=== PATIENT | male | born 1990 | race Caucasian/White ===

== ENCOUNTER → 2021-09-20 11:59 | Outpatient (CLI) | payer OTHER, SELFPAY ==
--- NOTE | ~2021-09-20 | XR_ITS ---
EXAMINATION: XR chest 2V DATE: 09/20/2021 12:15 INDICATION: Chest pain TECHNIQUE: PA and lateral views of the chest are obtained. COMPARISON: 03/13/2012 FINDINGS: The lungs are free of acute opacities. There is no pleural effusion or pneumothorax. The ca rdiomediastinal silhouette is normal. The visualized bones and soft tissues are unremarkable. IMPRESSION: 1. No acute cardiopulmonary abnormality. Reviewed, dictated and finalized at location A.
== END ==
LOC: EXPGRAD 12:05
PROVIDERS: PCP Family Medicine; Visit Provider Family Medicine
DX: R07.9 Chest pain, unspecified (principal)
CPT/HCPCS: 71046

== ENCOUNTER 2021-09-24 11:54 | Emergency (ER) | payer OTHER, SELFPAY ==
[2021-09-24] VITALS (14 sets, daily range): BP systolic 118–143; BP diastolic 78–99; PULSE 63–84; RESP 10–19; TEMP 36.4–36.7; O2SAT 99–100
--- NOTE | ~2021-09-24 | XR_ITS ---
EXAMINATION: XR chest 2V DATE: 09/24/2021 12:08 INDICATION: Chest pain. Shortness of breath. TECHNIQUE: Frontal and lateral views of the chest were obtained. COMPARISON: Chest 2 views 09/20/2021 FINDINGS: The chest demonstrates clear lungs without pneumonia, pleural effusion, or pneumothorax. Th e heart size is normal. IMPRESSION: 1. No acute cardiopulmonary disease. Reviewed, dictated and finalized at location A.
--- NOTE | 2021-09-24 11:55 | ECG_ITS ---
Measurements Intervals [place] Rate: 79 P: 37 AK: 147 QRS: 69 QRSD: 109 T: 56 QT: 352 QTc: 404 Interpretive Statements SINUS RHYTHM INCOMPLETE RIGHT BUNDLE BRANCH BLOCK CONSIDER TYPE 3 BRUGADA PATTERN ABNORMAL ECG Electronically Signed On 09-24-2021 13:12:28 CDT by Luca Tyler D.O.
--- NOTE | 2021-09-24 14:41 | ED.CHESTPAIN ---
HPI - Chest Pain General Chief Complaint: Chest Pain <Sophie Mcarthur PA-C - Last Filed: 09/24/21 17:27> Stated Complaint: sob, stabbing chest pain <Sophie Mcarthur PA-C - Last Filed: 09/24/21 17:27> Time Seen by Provider: 09/24/21 14:23 <Sophie Mcarthur PA-C - Last Filed: 09/24/21 17:27> Source: patient <Sophie Mcarthur PA-C - Last Filed: 09/24/21 17:27> Mode of arrival: ambulatory <Sophie Mcarthur PA-C - Last Filed: 09/24/21 17:27> Limitations: no limitations <Sophie Mcarthur PA-C - Last Filed: 09/24/21 17:27> History of Present Illness HPI narrative: This is a 31 year old male that presents to the ER for sharp chest pain present over the last week. Reports the pain is in the left lower chest. It has been constant since this yesterday. Also reports shortness of breath. Denies fever, cough, or lower extremity edema. <Sophie Mcarthur PA-C - Last Filed: 09/24/21 17:27> Related Data Allergies/Adverse Reactions: Allergies Allergy/AdvReac Type Severity Reaction Status Date / Time No Known Allergies Allergy Verified 09/24/21 14:45 <Sophie Mcarthur PA-C - Last Filed: 09/24/21 17:27> Review of Systems Review of Systems: CONSTITUTIONAL: Denies fever CARDIOVASCULAR: Reports chest pain. Denies palpitations, or edema. RESPIRATORY: Reports dyspnea. Denies cough <Sophie Mcarthur PA-C - Last Filed: 09/24/21 17:27> All systems reviewed & are unremarkable except as noted in HPI and below <Sophie Mcarthur PA-C - Last Filed: 09/24/21 17:27> PMFSH Past Medical History Medical History: Medical History (Updated 09/24/21 @ 17:22 by Sophie Mcarthur PA-C) No active medical problems <Sophie Mcarthur PA-C - Last Filed: 09/24/21 17:27> Social History Social History: Social History (Updated 09/24/21 @ 14:54 by Sophie Mcarthur PA-C) Smoking status: Current some day smoker Tobacco type: e-cigarettes/vaping <Sophie Mcarthur PA-C - Last Filed: 09/24/21 17:27> Exam Narrative: GENERAL: Well-appearing, well-nourished, and in no acute distress. HEAD: Normocephalic, atraumatic. EYES: EOMI. NECK: Supple. No adenopathy or masses. No carotid bruits or JVD CHEST: Clear to auscultation. No respiratory distress. No wheezes rales or rhonchi HEART: Regular rate and rhythm. No murmur heard. Normal peripheral pulses. EXTREMITIES: Normal range of motion. No edema. SKIN: Warm, dry, no rash. NEURO: No focal deficits. Alert and oriented x3. PSYCH: Normal mood and affect <Sophie Mcarthur PA-C - Last Filed: 09/24/21 17:27> Course [facility]/PA Physician Supervision I did not see this patient nor was the care plan discussed with me. I was available for evaluation and consultation, I agree with the documentation as above <Griffin Ch MD - Last Filed: 09/24/21 18:25> Consultations Consultation #1: Spoke with cardiology about patient work-up. Patient will be referred for further follow-up with an orthoptist. Patient will be called with an appointment. <Sophie Mcarthur PA-C - Last Filed: 09/24/21 17:27> Date: 09/24/21 <Sophie Mcarthur PA-C - Last Filed: 09/24/21 17:27> Time: 17:00 <Sophie Mcarthur PA-C - Last Filed: 09/24/21 17:27> Vital Signs Vital signs: Vital Signs Temperature 36.4 C L 09/24/21 12:27 Pulse Rate 82 09/24/21 12:27 Respiratory Rate 18 09/24/21 12:27 Blood Pressure 118/78 09/24/21 12:27 Pulse Oximetry 99 09/24/21 12:27 Temperature 36.7 C 09/24/21 18:06 Pulse Rate 71 09/24/21 18:06 Respiratory Rate 14 09/24/21 18:06 Blood Pressure 124/88 09/24/21 18:06 Pulse Oximetry 100 09/24/21 18:06 <Sophie Mcarthur PA-C - Last Filed: 09/24/21 17:27> Vital Signs Temperature 36.4 C L 09/24/21 12:27 Pulse Rate 82 09/24/21 12:27 Respiratory Rate 18 09/24/21 12:27 Blood Pressure 118/78 09/24/21 12:27 Pulse Oximetry 99 09/24/21 12:27 Temperature 36.7 C
[2021-09-24] MEDS: ASPIRIN 81 MG CHEWABLE TABLET 324 MG PO (14:43)
[2021-09-24] MEDS: KETOROLAC 30 MG/ML VIAL (*BKC) IV PUSH (14:48)
[2021-09-24 14:52] LABS: Basophils Absolute Auto 0.1 K/mm3 (0.0-0.1); Basophils Percent Auto 0.9 % (0.2-1.2); Eosinophils Absolute Auto 0.2 K/mm3 (0-0.3); Eosinophils Percent Auto 2.2 % (0-4.4); Hemoglobin 13.9 g/dL (14.0-18.0); Immature Granulocyte Absolute 0.03 K/mm3 (0.00-0.031); Immature Granulocyte Percent A 0.3 % (0-0.5); Lymphocytes Absolute Auto 2.52 K/mm3 (0.9-3.2); Lymphocytes Percent Auto 25.7 % (18.3-44.2); Mean Corpuscular HGB Conc 33.9 g/dl (32-36); Mean Corpuscular Volume 85.6 fl (80-100); Mean Platelet Volume 8.9 fl (7.4-10.4); Monocytes Absolute Auto 0.7 K/mm3 (0.1-0.6); Monocytes Percent Auto 7.4 % (2.6-8.5); Neutrophils Absolute Auto 6.2 K/mm3 (1.3-6.7); Neutrophils Percent Auto 63.5 % (45.5-73.1); Platelet Count Result 332 k/mm3 (150-375); Red Blood Count 4.79 M/mm3 (4.6-6.20); Red Cell Distribution Width 12.5 % (11.5-14.5); White Blood Count 9.8 K/mm3 (4.5-10.0)
[2021-09-24 15:04] LABS: INR 0.9; Prothrombin Time 12.5 Seconds (11.1-14.7)
[2021-09-24 15:05] LABS: Partial Thromboplastin Time 28.8 SECONDS (22.3-36.8)
[2021-09-24 15:22] LABS: D Dimer 0.27 ug/mL (<0.48)
[2021-09-24 15:49] LABS: Anion Gap 12 mmol/L (8-16); Blood Urea Nitrogen 18 mg/dL (9-20); Calcium 9.7 mg/dL (8.4-10.2); Carbon Dioxide 26 mmol/L (22-30); Chloride 103 mmol/L (98-107); Estimated CRCL calculation 98 ml/min; Estimated Glomerular Filt Rate > 60; Glucose 105 mg/dL (65-110); Sodium 141 mmol/L (137-145)
[2021-09-24 16:00] LABS: Troponin I < 0.012 ng/mL (0.000-0.034)
[2021-09-24 16:14] LABS: Troponin I < 0.012 ng/mL (0.000-0.034)
== END 2021-09-24 18:07 | disposition home or self-care (01) ==
PROVIDERS: Physician Assistant; Emergency Provider Emergency Medicine; PCP Family Medicine
DX: R07.89 Other chest pain (principal); F17.290 Nicotine dependence, other tobacco product, uncomplicated; I45.10 Unspecified right bundle-branch block; R94.31 Abnormal electrocardiogram [ECG] [EKG]
CPT/HCPCS: 36415; 71046; 80048; 84484; 85025; 85380; 85610; 85730; 93005; 96374; 99284; A9270; J1885

== ENCOUNTER 2025-02-28 09:46 | Outpatient (CLI) | payer OTHER, SELFPAY ==
--- OUTSIDE RECORDS SUMMARY | 2025-02-28 10:02 | XMS_ITS | Clinical Summary ---
Author Organization [facility] [employer] [place] Address [address] [place] [id number] Care Team Providers Care Rand Butter Name Role Phone Unavailable Primary Care Provider Unavailabl e Social History Tobacco Use Types Packs/Day Years Used Date Smoking Tobacco: Never Assessed Sex and Gender Information Value Date Recorded Sex Assigned at Not on file Legal Sex Male 11:41 PM CDT Gender Identity Not on file Sexual Orientation Not on file Last Filed Vital Signs Vital Sign Reading Time Taken Comments Blood Pressure 114/76 05/17/2022 1:38 PM CDT Pulse - - Temperature - - Respiratory Rate - - Oxygen Saturation - - Inhaled Oxygen Concentration - - Weight 83.9 kg (185 lb) 05/17/2022 1:38 PM CDT Height 170.2 cm (5' 7 ) 05/17/2022 1:38 PM CDT Body Mass Index 28.98 05/17/2022 1:38 PM CDT Plan of Treatment Health Maintenance Due Date Last Done Comments DTAP/TDAP/TD VACCINES (1 - Tdap) 2010 HEPATITIS B VACCINES (1 of 3 - 19+ 3-dose series) 2010 INFLUENZA VACCINE (#1) 2024 HPV VACCINES Aged Out No longer eligi ble based on patient's age to complete this topic PNEUMOCOCCAL VACCINE 0-49 YEARS Aged Out No longer eligible based on patient's age to complete this topic Insurance ALLEGIANCE OPEN ACCESS
[2025-02-28 14:05] LABS: Basophils Absolute Auto 0.1 K/mm3 (0.0-0.1); Basophils Percent Auto 0.8 % (0.2-1.2); Eosinophils Absolute Auto 0.3 K/mm3 (0-0.3); Eosinophils Percent Auto 3.4 % (0-4.4); Hematocrit 44.5 % (42.0-52.0); Immature Granulocyte Absolute 0.01 K/mm3 (0.00-0.031); Immature Granulocyte Percent A 0.1 % (0-0.5); Lymphocytes Absolute Auto 3.42 K/mm3 (0.9-3.2); Lymphocytes Percent Auto 43.1 % (18.3-44.2); Mean Corpuscular HGB Conc 31.5 g/dl (32-36); Mean Corpuscular Hemoglobin 27.5 pg (26-34); Mean Corpuscular Volume 87.4 fl (80-100); Mean Platelet Volume 10.1 fl (7.4-10.4); Monocytes Absolute Auto 0.8 K/mm3 (0.1-0.6); Monocytes Percent Auto 9.8 % (2.6-8.5); Neutrophils Absolute Auto 3.4 K/mm3 (1.3-6.7); Neutrophils Percent Auto 42.8 % (45.5-73.1); Platelet Count Result 367 k/mm3 (150-375); Red Blood Count 5.09 M/mm3 (4.6-6.20); White Blood Count 7.9 K/mm3 (4.5-10.0)
[2025-02-28 14:57] LABS: Alanine Aminotransferase 69 U/L (6-50); Albumin Level 4.7 g/dL (3.5-5.1); Alkaline Phosphatase 75 U/L (38-126); Anion Gap 11 mmol/L (4-12); Aspartate Amino Transferase 145 U/L (17-59); Bilirubin,Total 0.5 mg/dL (0.2-1.3); Blood Urea Nitrogen 14 mg/dL (9-20); Calcium 9.4 mg/dL (8.4-10.2); Carbon Dioxide 27 mmol/L (22-30); Chloride 102 mmol/L (98-107); Estimated Glomerular Filt Rate > 60; Glucose 83 mg/dL (65-110); Magnesium 2.2 mg/dL (1.6-2.3); Potassium 4.2 mmol/L (3.4-5.0); Sodium 140 mmol/L (137-145)
[2025-02-28 17:15] LABS: Hemoglobin A1C 5.5 % (<5.7)
== END 2025-02-28 09:47 | disposition home or self-care (01) ==
LOC: ANHGOSHLAB 09:47
PROVIDERS: PCP Internal Medicine; Visit Provider Nurse Practitioner
DX: R20.0 Anesthesia of skin (principal); R20.2 Paresthesia of skin; Z83.3 Family history of diabetes mellitus; Z13.220 Encounter for screening for lipoid disorders
CPT/HCPCS: 36415; 80053; 83036; 83735; 84443; 85025

== ENCOUNTER 2025-06-16 12:29 | Emergency (ER) | payer OTHER, SELFPAY ==
--- NOTE | ~2025-06-16 | XR_ITS ---
XR tibia fibula RT 2V 06/16/2025 13:19 INDICATION: Right leg pain PROCEDURE: 2 views right tibia/fibula COMPARISON: No prior studies for comparison. FINDINGS: Fracture, dislocation or subluxation is not identified. The soft tissues appear within norm al limits. No foreign bodies are identified. IMPRESSION: 1: NO ACUTE BONE OR JOINT ABNORMALITY IDENTIFIED. Reviewed, dictated and finalized at location A.
[2025-06-16 12:33] VITALS: BP 145/97; PULSE 88; RESP 17; TEMP 36.6; O2SAT 99
--- OUTSIDE RECORDS SUMMARY | 2025-06-16 12:35 | XMS_ITS | Clinical Summary ---
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
--- OUTSIDE RECORDS SUMMARY | 2025-06-16 14:11 | XMS_ITS | Clinical Summary ---
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
--- NOTE | 2025-06-16 14:12 | ED.GENADULT ---
HPI - General Adult General Chief complaint: Extremity Injury, Lower Stated complaint: leg injury Time Seen by Provider: 06/16/25 13:28 History of Present Illness HPI narrative: 34-year-old male present to the emergency department for evaluation for injury to his right ortega. Patient reports he had some metal strike his anterior ortega slid down his leg. Does have an abrasion to the right ortega. Patient denies striking his head denies loss of consciousness. Patient denies any neck or back pain. Patient denies any pain of the foot but does have pain with flexion of the right ankle due to ortega pain. Related Data Home Medications ?Medication ?Instructions ?Recorded ?Confirmed ?Last Taken ?Type No Home Medications 02/28/25 Unknown History Allergies Allergy/AdvReac Type Severity Reaction Status Date / Time No Known Allergies Allergy Verified 06/16/25 12:42 Review of Systems Review of Systems: All systems reviewed & are unremarkable except as noted in HPI and below PMFSH Past Medical History Medical History (Updated 06/16/25 @ 22:15 by Jean Jackson MD) Acute hemorrhoid Head ache Allergies No active medical problems Surgical History Surgical History History of appendectomy Family History Family History Mother Depression Anxiety Grandparent Alcoholism Social History Social History (Updated 02/28/25 @ 09:11 by Brittney Graham CMA) Smoking packs per day: 0 Smoking cigarettes per day: 0.0 Years smoked: 3 Smoking pack-years: 0.00 Smoking status: Former smoker Tobacco type: cigarettes and e-cigarettes/vaping Alcohol intake: current Drinks per week: 1 Alcohol use details: whiskey/beer Substance use: current Substance use type: marijuana Do You Feel Safe in your Home?: Yes Lack of Transportation: No Lack of Food: Never True Current Housing: I Have Housing Concerned About Future Housing: No Difficulty Paying Gas/Electric Bills: No Difficulty Paying for Meds: No Currently Unemployed: No Education: Associate Degree Difficulty w/ Childcare or Family Care: No Living arrangements: with family Occupation/Education: occupation 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 HEAD: normocephalic, atraumatic. EYES: PERRLA/EOMI, conjunctivae clear. NOSE: Normal no drainage EARS:TMS clear with good light reflex. THROAT: Pharynx clear, no exudate. NECK: Supple. No adenopathy, no masses. RESPIRATORY: Airway patent, respirations nonlabored. Clear to auscultation bilaterally, no rales, rhonchi, wheezing. CARDIOVASCULAR: Regular rate and rhythm without murmurs rubs or gallops. ABDOMINAL: Soft, nontender, nondistended, normal bowel sounds MUSCULOSKELETAL: Tenderness to anterior right ortega. No posterior calf tenderness, no deformity, neurovascularly intact NEURO: Alert. Cranial nerves II through XII intact. Good gait. Good coordination SKIN: Abrasion to right ortega Course Vital Signs Vital signs: Vital Signs Temperature 97.9 F 06/16/25 12:33 Pulse Rate 88 06/16/25 12:33 Respiratory Rate 17 06/16/25 12:33 Blood Pressure 145/97 H 06/16/25 12:33 Pulse Oximetry 99 06/16/25 12:33 Oxygen Delivery Room Air 06/16/25 12:33 Temperature 97.9 F 06/16/25 12:33 Pulse Rate 88 06/16/25 12:33 Respiratory Rate 17 06/16/25 12:33 Blood Pressure 145/97 H 06/16/25 12:33 Pulse Oximetry 99 06/16/25 12:33 Oxygen Delivery Room Air 06/16/25 12:33 Medical Decision Making [facility] Narrative Medical decision making narrative: 34-year-old male presents emergency department for evaluation for injury to his right lower leg. Patient does have a contusion to his anterior right ortega with an associated abrasion. Patient's x-rays were negative for acute fracture dislocation. Patient does have some pain with range of motion of the right ankle secondary to tightness of the anterior ortega. No tenderness to palpation of the right ankle. Patient will be placed an Jorge wrap for comfort and support provided crutches for limited weight-bearing. Patient will be provided a work note for limited weight-bearing and crutch use for the next 3 days. Differential Diagnosis Differential Diagnosis: Tib-fib fracture, ankle fracture, foot fracture Vital Signs Vital Signs: Vital Signs Temperature 97.9 F 06/16/25 12:33 Pulse Rate 88 06/16/25 12:33 Respiratory Rate 17 06/16/25 12:33 Blood Pressure 145/97 H 06/16/25 12:33 Pulse Oximetry 99 06/16/25 12:33 Oxygen Delivery Room Air 06/16/25 12:33 Temperature 97.9 F 06/16/25 12:33 Pulse Rate 88 06/16/25 12:33 Respiratory Rate 17 06/16/25 12:33 Blood Pressure 145/97 H 06/16/25 12:33 Pulse Oximetry 99 06/16/25 12:33 Oxygen Delivery Room Air 06/16/25 12:33 Imaging Data Radiologist's impression: Impressions Tibia/Fibula X-Ray 06/16/25 13:20 IMPRESSION: 1: NO ACUTE BONE OR JOINT ABNORMALITY IDENTIFIED. Discharge Plan Discharge Clinical Impression: Contusion of leg, right, Abrasion Patient Disposition: Home Condition: Stable Instructions: Antibiotic Form, Crutch Instructions (ED) Additional Instructions: Tylenol and ibuprofen for pain control. Jorge wrap for comfort. Crutches for limited weight-bearing for 3 days. Have close follow-up with your primary care physician. Patient Language: Albanian Prescriptions: No Action No Home Medications Follow-up/Referrals: Hari Li DO [Primary Care Provider] - Stand Alone Forms: Work/School Release IP
== END 2025-06-16 14:41 | disposition home or self-care (01) ==
PROVIDERS: Emergency Provider Emergency Medicine; PCP Internal Medicine
DX: S80.11XA Contusion of right lower leg, initial encounter (principal); S80.811A Abrasion, right lower leg, initial encounter; W22.8XXA Striking against or struck by other objects, initial encounter
CPT/HCPCS: 73590; 99283